=== PATIENT | male | born 1935 | race Caucasian/White ===

== ENCOUNTER 2018-07-25 12:05 | Outpatient (RCR) | payer MEDICARE | END 2018-10-23 | disposition home or self-care (01) | LOC: CARDREHAB | DX: Z48.812 Encounter for surgical aftercare following surgery on the circulatory system (principal); Z95.5 Presence of coronary angioplasty implant and graft ==

== ENCOUNTER 2019-01-14 09:20 | Outpatient (RCR) | payer MEDICARE ==
[~2019-01-14 09:20] MED LIST: AKWA TEARS 15 M15 ML OU; ASPIRIN 81M81 MG/TA2 PO; AZELASTINE137 MCG/Ac NS; CALCIUM 600 +1 EAC5 PO; CELEBREX 200MG200 MG PO; CENTRUM SILVER1 EAC2 PO; CLOPIDOGREL PO; CORDARONE200 MG/TAB PO; COUMADIN 22.5 MG/TAB PO; DESYREL50 MG PO; FISH OIL 1,2001 EACH PO; GLUCOSAMINE & C1 CA2 PO; ICAPS TABLET1 EACH PO; IMPOYZ60 GM TP; ISOSORBIDE MONO60 M2 PO; LASIX40 M1 PO; LIPITOR 40MG TA40 MG PO; NITROSTAT0.3 MG SL; TOPROL XL 50MG50 MG PO; TRIPHALA PO; VITAMIN E400 UNIT PO; XANAX0.5 M1 PO; ZESTRIL20 M1 PO
== END 2019-01-23 | disposition home or self-care (01) ==
LOC: CARDREHAB
DX: Z48.812 Encounter for surgical aftercare following surgery on the circulatory system (principal); Z95.1 Presence of aortocoronary bypass graft

== ENCOUNTER 2019-01-20 19:51 | Emergency (ER) | payer MEDICARE ==
[~2019-01-20] VITALS: Ht 162.6 cm; Wt 131.0 kg
[2019-01-20 21:10] LABS: URINE APPEARANCE HAZY; URINE BILIRUBIN NEGATIVE (NEGATIVE); URINE BLOOD 250 ery/uL (NEGATIVE); URINE COLOR YELLOW; URINE GLUCOSE 50 mg/dL mg/dL (NEGATIVE); URINE KETONE NEGATIVE (NEGATIVE); URINE LEUKOCYTE ESTERASE NEGATIVE (NEGATIVE); URINE NITRATE NEGATIVE (NEGATIVE); URINE PROTEIN(semi-quant) 2+ mg/dL (NEGATIVE); URINE UROBILINOGEN NORMAL (NORMAL)
[2019-01-20 21:10] LABS: ALBUMIN 4.1 g/dL (3.4-4.8); BASO # 0.1 (0.02-0.10); CALCIUM 9.7 mg/dL (8.3-10.5); EOS # 0.5 (0.04-0.40); EOS % 2.9 % (0.0-4.0); HEMOGLOBIN 13.8 g/dL (13.5-18.0); LYMPH# 7.2 (1.50-4.00); MEAN CELL VOLUME 92 fl (78-100); MEAN CORPUSCULAR HEMOGLOBIN 28 pg (27-31); MEAN CORPUSCULAR HGB CONC 31 g/dL (33-37); MEAN PLATELET VOLUME 9.6 fl (7.4-10.4); MONO # 1.8 (0.20-0.80); NEU # 7.1 (1.40-6.50); PLATELET COUNT 277 K/mm3 (130-400); POTASSIUM 4.6 mmol/L (3.5-5.1); RED CELL DISTRIBUTION WIDTH 15.1 % (11.5-14.5); TOTAL BILIRUBIN 0.4 mg/dL (0.2-1.2); TOTAL PROTEIN 7.7 g/dL (6.2-8.1); TROPONIN-I 0.09 ng/mL (<0.030); WHITE BLOOD COUNT 16.7 K/mm3 (4.8-10.8)
[2019-01-20 21:11] LABS: URINE MUCUS PRESENT (NOT PRESENT)
[2019-01-20 21:19] VITALS: BP 170/81
== END 2019-01-20 21:19 | disposition short-term general hospital (02) ==
LOC: ED 21:06
PROVIDERS: Family Medicine
DX: J81.1 Chronic pulmonary edema (principal); I48.91 Unspecified atrial fibrillation; I25.10 Atherosclerotic heart disease of native coronary artery without angina pectoris; I50.9 Heart failure, unspecified; Z95.0 Presence of cardiac pacemaker
CPT/HCPCS: A4618; A7027; J1940; J3010

== ENCOUNTER 2019-05-17 11:00 | Outpatient (RCR) | payer MEDICARE ==
[2019-02-12 06:04] VITALS: BP 125/72
[~2019-05-17 11:00] MED LIST changes: +ALBUTEROL S5 MG/1 ML IH; +ALPRAZOLAM0.25 MG PO; +ATORVASTATIN CA40 MG PO; +ELIQUIS5 MG PO; +FAMOTIDINE20 MG PO; +FISH OIL 1000MG1 CAP PO; +MULTIVITAMIN1 SGL PO; +TRIAMCINOLONE A15 G1 TOP; +[UNRECOGNIZED DRUG - OTHER] PO
== END 2019-05-19 | disposition home or self-care (01) ==
LOC: CARDREHAB
DX: Z48.812 Encounter for surgical aftercare following surgery on the circulatory system (principal); Z95.5 Presence of coronary angioplasty implant and graft; I25.2 Old myocardial infarction; I50.9 Heart failure, unspecified

== ENCOUNTER 2020-04-30 14:59 | Outpatient (RCR) | payer MEDICARE ==
[2019-02-12 06:04] VITALS: BP 125/72
== END 2020-04-30 16:00 | disposition home or self-care (01) ==
LOC: CARDREHAB 14:59 → CARDLAB 15:00 → CARDREHAB 15:00
DX: Z48.812 Encounter for surgical aftercare following surgery on the circulatory system (principal); Z95.5 Presence of coronary angioplasty implant and graft; Z95.2 Presence of prosthetic heart valve; I35.0 Nonrheumatic aortic (valve) stenosis; I11.0 Hypertensive heart disease with heart failure; I50.30 Unspecified diastolic (congestive) heart failure; Z95.0 Presence of cardiac pacemaker

== ENCOUNTER 2020-08-06 10:41 | Emergency (ER) | payer MEDICARE ==
[~2020-08-06] VITALS: Wt 123.9 kg
[~2020-08-06 10:41] MED LIST changes: +DAILY VALUE1 EACH PO; -NITROSTAT0.3 MG SL; +NITROSTAT0.4 M1 SL
[2020-08-06 11:33] LABS: HEMATOCRIT 34.8 % (42.0-52.0); HEMOGLOBIN 10.6 g/dL (13.5-18.0); MEAN CELL VOLUME 78 fl (78-100); MEAN CORPUSCULAR HEMOGLOBIN 24 pg (27-31); MEAN CORPUSCULAR HGB CONC 31 g/dL (33-37); MEAN PLATELET VOLUME 10.5 fl (7.4-10.4); PLATELET COUNT 152 K/mm3 (130-400); RED BLOOD COUNT 4.49 M/mm3 (4.20-5.60); RED CELL DISTRIBUTION WIDTH 20.8 % (11.5-14.5)
[2020-08-06 11:42] LABS: ALBUMIN 3.6 g/dL (3.4-4.8)
[2020-08-06 11:43] LABS: POTASSIUM 3.6 mmol/L (3.5-5.1); SODIUM 138 mmol/L (136-145)
[2020-08-06 11:44] LABS: CALCIUM 9.1 mg/dL (8.3-10.5)
[2020-08-06 11:45] LABS: GLUCOSE 191 mg/dL (75-110); TOTAL PROTEIN 7.4 g/dL (6.2-8.1)
[2020-08-06 11:46] LABS: CARBON DIOXIDE 26 mmol/L (23-31)
[2020-08-06 11:47] LABS: TOTAL BILIRUBIN 0.8 mg/dL (0.2-1.2)
[2020-08-06 11:50] LABS: AST-SGOT 34 U/L (5-34)
[2020-08-06 11:52] LABS: ALT/SGPT 33 U/L (0-55)
[2020-08-06 12:11] LABS: D-DIMER 1.26 mg/L FEU (0.15-0.50); TROPONIN-I < 0.03 ng/mL (<0.030)
[2020-08-06 12:15] LABS: LYMPHOCYTE 9 % (20-51); MICROCYTOSIS 2+; MONOCYTE 15 % (3-10); NEUTROPHILS 76 % (42-75); OVALOCYTES 1+
[2020-08-06 12:56] LABS: ERYTHROCYTE SEDIMENTATION RATE 80 mm/hr (0-20)
[2020-08-06 14:18] LABS: URINE APPEARANCE CLEAR; URINE COLOR YELLOW
[2020-08-06 14:19] LABS: URINE BILIRUBIN NEGATIVE (NEGATIVE); URINE BLOOD TRACE (NEGATIVE); URINE GLUCOSE NEGATIVE (NEGATIVE); URINE KETONE NEGATIVE (NEGATIVE); URINE LEUKOCYTE ESTERASE NEGATIVE (NEGATIVE); URINE NITRATE NEGATIVE (NEGATIVE); URINE PROTEIN(semi-quant) 1+ mg/dL (NEGATIVE); URINE UROBILINOGEN NORMAL (NORMAL)
[2020-08-06 14:20] LABS: URINE MUCUS PRESENT (NOT PRESENT)
[2020-08-06] MEDS ORDERED: VITAMIN C PUR1000 MG PO (15:02)
[2020-08-06] MEDS ORDERED: CEFDINIR300 MG PO (15:02)
[2020-08-06] MEDS ORDERED: PHARMASSURE ZIN50 MG PO (15:02)
[2020-08-06] MEDS ORDERED: VITAMIN D325 MC7 PO (15:06)
[2020-08-06 15:25] VITALS: BP 148/81
== END 2020-08-06 15:42 | disposition home or self-care (01) ==
LOC: ED 10:41
PROVIDERS: Physician Assistant
DX: J01.90 Acute sinusitis, unspecified (principal); I50.9 Heart failure, unspecified; I11.0 Hypertensive heart disease with heart failure; I27.20 Pulmonary hypertension, unspecified; F41.9 Anxiety disorder, unspecified; E78.5 Hyperlipidemia, unspecified; Z20.828 Contact with and (suspected) exposure to other viral communicable diseases; Z95.4 Presence of other heart-valve replacement; Z79.02 Long term (current) use of antithrombotics/antiplatelets; Z79.01 Long term (current) use of anticoagulants
CPT/HCPCS: Q9967

== ENCOUNTER 2020-08-09 14:57 | Emergency (ER) | payer MEDICARE ==
[~2020-08-09] VITALS: Wt 125.4 kg
[~2020-08-09 14:57] MED LIST changes: +CEFDINIR300 MG PO; +PHARMASSURE ZIN50 MG PO; +VITAMIN C PUR1000 MG PO; +VITAMIN D325 MC7 PO
[2020-08-09] MEDS ORDERED: ALPRAZOLAM0.5 MG PO (15:52)
[2020-08-09] MEDS ORDERED: POTASSIUM CHLO20 ME4 PO (15:53)
[2020-08-09] MEDS ORDERED: CALCIUM 600 MG-1 TAB PO (15:58)
[2020-08-09 17:04] LABS: HEMATOCRIT 32.2 % (42.0-52.0); HEMOGLOBIN 9.9 g/dL (13.5-18.0); MEAN CELL VOLUME 78 fl (78-100); MEAN CORPUSCULAR HEMOGLOBIN 24 pg (27-31); MEAN CORPUSCULAR HGB CONC 31 g/dL (33-37); MEAN PLATELET VOLUME 9.9 fl (7.4-10.4); PLATELET COUNT 220 K/mm3 (130-400); RED BLOOD COUNT 4.14 M/mm3 (4.20-5.60); WHITE BLOOD COUNT 14.9 K/mm3 (4.8-10.8)
[2020-08-09 17:18] LABS: POTASSIUM 3.9 mmol/L (3.5-5.1)
[2020-08-09 17:22] LABS: BAND 1 % (0-10); HYPOCHROMIA 1+; LYMPHOCYTE 10 % (20-51); MICROCYTOSIS 1+; MONOCYTE 11 % (3-10); NEUTROPHILS 76 % (42-75); OVALOCYTES 1+; TARGET CELLS 1+
[2020-08-09] MEDS ORDERED: GUAIFEN-CODEINE5 ML PO (18:37)
[2020-08-09] MEDS ORDERED: DECADRON 4MG TAB4 MG PO (18:37)
[2020-08-09 19:12] VITALS: BP 149/90
== END 2020-08-09 19:12 | disposition home or self-care (01) ==
LOC: ED 14:57
PROVIDERS: Family Medicine
DX: J12.9 Viral pneumonia, unspecified (principal); B34.9 Viral infection, unspecified; I25.10 Atherosclerotic heart disease of native coronary artery without angina pectoris; Z95.4 Presence of other heart-valve replacement; Z95.0 Presence of cardiac pacemaker; Z79.01 Long term (current) use of anticoagulants; Z79.02 Long term (current) use of antithrombotics/antiplatelets

== ENCOUNTER 2020-08-09 20:21 | Emergency (ER) | payer MEDICARE ==
[~2020-08-09] VITALS: Ht 170.2 cm; Wt 126.7 kg
[~2020-08-09 20:21] MED LIST changes: +ALPRAZOLAM0.5 MG PO; +CALCIUM 600 MG-1 TAB PO; +DECADRON 4MG TAB4 MG PO; +GUAIFEN-CODEINE5 ML PO; +POTASSIUM CHLO20 ME4 PO
[2020-08-09 20:46] VITALS: BP 126/71
== END 2020-08-09 20:46 | disposition other institution (70) ==
LOC: ED 20:21
DX: J18.9 Pneumonia, unspecified organism (principal); Z79.01 Long term (current) use of anticoagulants; Z79.02 Long term (current) use of antithrombotics/antiplatelets

== ENCOUNTER 2020-08-31 15:51 | Inpatient (IN) | payer MEDICARE ==
[2020-08-31 16:40] VITALS: BP 132/80
[2020-08-31 18:00] VITALS: BP 132/80
[2020-08-31 18:19] LABS: EOS # 0.3 (0.04-0.40); EOS % 2.8 % (0.0-4.0); HEMATOCRIT 33.7 % (42.0-52.0); HEMOGLOBIN 10.1 g/dL (13.5-18.0); LYMPH# 1.5 (1.50-4.00); MEAN CELL VOLUME 80 fl (78-100); MEAN CORPUSCULAR HEMOGLOBIN 24 pg (27-31); MEAN CORPUSCULAR HGB CONC 30 g/dL (33-37); MEAN PLATELET VOLUME 9.2 fl (7.4-10.4); MONO # 1.2 (0.20-0.80); NEU # 8.2 (1.40-6.50); PLATELET COUNT 309 K/mm3 (130-400); RED BLOOD COUNT 4.23 M/mm3 (4.20-5.60); RED CELL DISTRIBUTION WIDTH 20.4 % (11.5-14.5); WHITE BLOOD COUNT 11.2 K/mm3 (4.8-10.8)
[2020-08-31 18:31] LABS: ALBUMIN 3.6 g/dL (3.4-4.8)
[2020-08-31 18:32] LABS: POTASSIUM 3.7 mmol/L (3.5-5.1)
[2020-08-31 18:33] LABS: CALCIUM 9.5 mg/dL (8.3-10.5)
[2020-08-31 18:34] LABS: TOTAL PROTEIN 8.2 g/dL (6.2-8.1)
[2020-08-31 18:36] LABS: TOTAL BILIRUBIN 0.7 mg/dL (0.2-1.2)
[2020-09-01 06:34] VITALS: BP 134/82
[2020-09-01 17:16] VITALS: BP 121/59
[2020-09-02 01:50] VITALS: BP 144/80
[2020-09-02 06:01] VITALS: BP 144/84
[2020-09-02 17:15] VITALS: BP 139/77
[2020-09-03 05:48] VITALS: BP 139/73
[2020-09-03 16:07] VITALS: BP 135/77
[2020-09-04 06:16] VITALS: BP 129/70
[2020-09-04 16:35] LABS: URINE APPEARANCE CLEAR; URINE BILIRUBIN NEGATIVE (NEGATIVE); URINE BLOOD NEGATIVE (NEGATIVE); URINE COLOR YELLOW; URINE GLUCOSE NEGATIVE (NEGATIVE); URINE KETONE NEGATIVE (NEGATIVE); URINE LEUKOCYTE ESTERASE NEGATIVE (NEGATIVE); URINE NITRATE NEGATIVE (NEGATIVE); URINE PROTEIN(semi-quant) TRACE mg/dL (NEGATIVE); URINE UROBILINOGEN NORMAL (NORMAL); URINE WBC 0-1 /hpf (0-3)
[2020-09-04 17:13] VITALS: BP 157/80
[2020-09-05 05:59] VITALS: BP 158/82
[2020-09-05 17:13] VITALS: BP 137/83
[2020-09-06 06:10] VITALS: BP 154/91
[2020-09-06 17:03] VITALS: BP 138/77
[2020-09-07 06:07] VITALS: BP 157/84
[2020-09-07 07:19] LABS: ALBUMIN 3.3 g/dL (3.4-4.8); POTASSIUM 3.7 mmol/L (3.5-5.1)
[2020-09-07 07:20] LABS: CALCIUM 8.9 mg/dL (8.3-10.5)
[2020-09-07 07:21] LABS: EOS # 0.1 (0.04-0.40); EOS % 1.5 % (0.0-4.0); HEMATOCRIT 33.8 % (42.0-52.0); HEMOGLOBIN 10.2 g/dL (13.5-18.0); MEAN CELL VOLUME 80 fl (78-100); MEAN CORPUSCULAR HEMOGLOBIN 24 pg (27-31); MEAN CORPUSCULAR HGB CONC 30 g/dL (33-37); MEAN PLATELET VOLUME 8.7 fl (7.4-10.4); MONO # 0.9 (0.20-0.80); NEU # 5.1 (1.40-6.50); PLATELET COUNT 365 K/mm3 (130-400); RED BLOOD COUNT 4.25 M/mm3 (4.20-5.60); RED CELL DISTRIBUTION WIDTH 19.9 % (11.5-14.5); TOTAL PROTEIN 7.1 g/dL (6.2-8.1); WHITE BLOOD COUNT 8.1 K/mm3 (4.8-10.8)
[2020-09-07 07:23] LABS: TOTAL BILIRUBIN 0.4 mg/dL (0.2-1.2)
[2020-09-07 15:51] VITALS: BP 113/70
[2020-09-08 05:46] VITALS: BP 110/73
[2020-09-08 17:53] VITALS: BP 143/83
[2020-09-09 05:53] VITALS: BP 134/81
[2020-09-09 17:02] VITALS: BP 137/81
[2020-09-10 05:20] VITALS: BP 123/72
[2020-09-10 18:00] VITALS: BP 144/71
[2020-09-11 05:08] VITALS: BP 144/84
[2020-09-11 17:18] VITALS: BP 152/85
[2020-09-12 05:26] VITALS: BP 138/67
[2020-09-12 18:30] VITALS: BP 143/81
[2020-09-13 06:15] VITALS: BP 128/75
[2020-09-13 15:57] VITALS: BP 138/84
[2020-09-14 06:20] VITALS: BP 125/84
[2020-09-14 07:39] LABS: EOS # 0.2 (0.04-0.40); EOS % 2.9 % (0.0-4.0); HEMATOCRIT 38.1 % (42.0-52.0); HEMOGLOBIN 11.3 g/dL (13.5-18.0); LYMPH# 2.1 (1.50-4.00); MEAN CELL VOLUME 80 fl (78-100); MEAN CORPUSCULAR HEMOGLOBIN 24 pg (27-31); MEAN CORPUSCULAR HGB CONC 30 g/dL (33-37); MEAN PLATELET VOLUME 8.9 fl (7.4-10.4); MONO # 0.9 (0.20-0.80); NEU # 4.8 (1.40-6.50); PLATELET COUNT 286 K/mm3 (130-400); RED BLOOD COUNT 4.74 M/mm3 (4.20-5.60)
[2020-09-14 07:42] LABS: ALBUMIN 3.4 g/dL (3.4-4.8); POTASSIUM 4.5 mmol/L (3.5-5.1)
[2020-09-14 07:43] LABS: CALCIUM 8.9 mg/dL (8.3-10.5)
[2020-09-14 07:45] LABS: TOTAL PROTEIN 7.1 g/dL (6.2-8.1)
[2020-09-14 07:47] LABS: TOTAL BILIRUBIN 0.4 mg/dL (0.2-1.2)
[2020-09-14 08:52] LABS: ERYTHROCYTE SEDIMENTATION RATE 43 mm/hr (0-20)
[2020-09-14 16:20] VITALS: BP 138/74
[2020-09-15 05:34] VITALS: BP 149/81
[2020-09-15 17:44] VITALS: BP 121/62
[2020-09-16 05:52] VITALS: BP 111/84
[2020-09-16 17:10] VITALS: BP 133/75
[2020-09-17 05:27] VITALS: BP 138/78
[2020-09-17 17:16] VITALS: BP 168/74
[2020-09-18 06:07] VITALS: BP 143/74
[2020-09-18] MEDS ORDERED: NORCO 325 MG-51 TA1 PO ×8 (07:57→10:41)
[2020-09-18 17:16] VITALS: BP 113/71
[2020-09-19 05:20] VITALS: BP 136/80
[2020-09-19 17:04] VITALS: BP 163/96
[2020-09-20 05:41] VITALS: BP 114/51
[2020-09-20 18:00] VITALS: BP 137/62
[2020-09-21 06:03] VITALS: BP 130/69
[2020-09-21 08:01] LABS: EOS # 0.5 (0.04-0.40); HEMATOCRIT 32.8 % (42.0-52.0); HEMOGLOBIN 9.9 g/dL (13.5-18.0); LYMPH# 1.5 (1.50-4.00); MEAN CELL VOLUME 80 fl (78-100); MEAN CORPUSCULAR HEMOGLOBIN 24 pg (27-31); MEAN CORPUSCULAR HGB CONC 30 g/dL (33-37); MEAN PLATELET VOLUME 8.9 fl (7.4-10.4); MONO # 0.8 (0.20-0.80); NEU # 3.9 (1.40-6.50); PLATELET COUNT 192 K/mm3 (130-400); RED BLOOD COUNT 4.08 M/mm3 (4.20-5.60); RED CELL DISTRIBUTION WIDTH 20.1 % (11.5-14.5); WHITE BLOOD COUNT 6.6 K/mm3 (4.8-10.8)
[2020-09-21 08:02] LABS: ALBUMIN 3.4 g/dL (3.4-4.8); POTASSIUM 3.5 mmol/L (3.5-5.1)
[2020-09-21 08:03] LABS: CALCIUM 8.9 mg/dL (8.3-10.5)
[2020-09-21 08:04] LABS: EOS % 7.1 % (0.0-4.0)
[2020-09-21 08:05] LABS: TOTAL PROTEIN 6.8 g/dL (6.2-8.1)
[2020-09-21 08:06] LABS: TOTAL BILIRUBIN 0.5 mg/dL (0.2-1.2)
[2020-09-21 17:21] VITALS: BP 141/80
[2020-09-22 05:47] VITALS: BP 100/62
[2020-09-22 07:34] LABS: EOS # 0.6 (0.04-0.40); HEMATOCRIT 31.9 % (42.0-52.0); HEMOGLOBIN 9.7 g/dL (13.5-18.0); LYMPH# 1.6 (1.50-4.00); MEAN CELL VOLUME 81 fl (78-100); MEAN CORPUSCULAR HEMOGLOBIN 25 pg (27-31); MEAN CORPUSCULAR HGB CONC 30 g/dL (33-37); MEAN PLATELET VOLUME 9.4 fl (7.4-10.4); MONO # 0.8 (0.20-0.80); NEU # 4.1 (1.40-6.50); PLATELET COUNT 196 K/mm3 (130-400); RED BLOOD COUNT 3.95 M/mm3 (4.20-5.60); RED CELL DISTRIBUTION WIDTH 19.9 % (11.5-14.5)
[2020-09-22 07:44] LABS: ALBUMIN 3.4 g/dL (3.4-4.8); POTASSIUM 3.6 mmol/L (3.5-5.1)
[2020-09-22 07:46] LABS: TOTAL PROTEIN 6.9 g/dL (6.2-8.1)
[2020-09-22 07:48] LABS: TOTAL BILIRUBIN 0.5 mg/dL (0.2-1.2)
[2020-09-22 08:03] LABS: EOS % 7.8 % (0.0-4.0)
[2020-09-22 08:39] LABS: ERYTHROCYTE SEDIMENTATION RATE 69 mm/hr (0-20)
[2020-09-22 12:05] VITALS: BP 143/78
[2020-09-22 12:44] LABS: URINE APPEARANCE CLEAR; URINE BILIRUBIN NEGATIVE (NEGATIVE); URINE BLOOD NEGATIVE (NEGATIVE); URINE COLOR YELLOW; URINE GLUCOSE NEGATIVE (NEGATIVE); URINE KETONE NEGATIVE (NEGATIVE); URINE LEUKOCYTE ESTERASE NEGATIVE (NEGATIVE); URINE MUCUS PRESENT (NOT PRESENT); URINE NITRATE NEGATIVE (NEGATIVE); URINE PROTEIN(semi-quant) TRACE mg/dL (NEGATIVE); URINE UROBILINOGEN NORMAL (NORMAL)
[2020-09-23] MEDS ORDERED: COLACE100 M1 PO (21:44)
[2020-09-23] MEDS ORDERED: DULCOLAX5 M1 PO (21:45)
[2020-09-23] MEDS ORDERED: PROTONIX TR40 M1 PO ×2 (21:46→21:50)
[2020-09-23] MEDS ORDERED: ZINC SO4 PO (21:53)
[2020-09-23] MEDS ORDERED: VITAMIN C500 MG PO (22:04)
[2020-09-23] MEDS ORDERED: cholecalciferol PO (22:06)
== END 2020-09-22 14:25 | disposition short-term general hospital (02) | DRG 307 ==
LOC: MED/SURG 15:51
PROVIDERS: Internal Medicine; Nurse Practitioner; ADMIT Physician Assistant
DX: I38 Endocarditis, valve unspecified (principal); I48.91 Unspecified atrial fibrillation; I50.9 Heart failure, unspecified; I25.10 Atherosclerotic heart disease of native coronary artery without angina pectoris; E11.22 Type 2 diabetes mellitus with diabetic chronic kidney disease; N18.9 Chronic kidney disease, unspecified; I27.20 Pulmonary hypertension, unspecified; G47.33 Obstructive sleep apnea (adult) (pediatric); Z20.822 Contact with and (suspected) exposure to COVID-19; J30.9 Allergic rhinitis, unspecified; E78.5 Hyperlipidemia, unspecified; G47.00 Insomnia, unspecified; E66.9 Obesity, unspecified; Z68.39 Body mass index [BMI] 39.0-39.9, adult; Z79.01 Long term (current) use of anticoagulants; Z95.2 Presence of prosthetic heart valve; Z96.659 Presence of unspecified artificial knee joint; Z79.02 Long term (current) use of antithrombotics/antiplatelets
CPT/HCPCS: J0290; J1580

== ENCOUNTER 2020-09-23 17:25 | Inpatient (IN) | payer MEDICARE ==
[~2020-09-23 17:25] MED LIST changes: +NORCO 325 MG-51 TA1 PO
[2020-09-23 18:29] VITALS: BP 172/92
[2020-09-23] MEDS ORDERED: COLACE100 M1 PO (21:44)
[2020-09-23] MEDS ORDERED: DULCOLAX5 M1 PO (21:45)
[2020-09-23] MEDS ORDERED: PROTONIX TR40 M1 PO ×2 (21:46→21:50)
[2020-09-23] MEDS ORDERED: ZINC SO4 PO (21:53)
[2020-09-23] MEDS ORDERED: VITAMIN C500 MG PO (22:04)
[2020-09-23] MEDS ORDERED: cholecalciferol PO (22:06)
[2020-09-24 05:48] VITALS: BP 142/77
[2020-09-24 17:11] VITALS: BP 139/77
[2020-09-25 05:58] VITALS: BP 131/76
[2020-09-25 17:08] VITALS: BP 124/74
[2020-09-26 05:44] VITALS: BP 150/80
[2020-09-26 17:12] VITALS: BP 142/76
[2020-09-27 06:28] VITALS: BP 123/65
[2020-09-27 17:29] VITALS: BP 118/64
[2020-09-28 05:54] VITALS: BP 121/71
[2020-09-28 07:11] LABS: HEMATOCRIT 32.2 % (42.0-52.0); HEMOGLOBIN 9.4 g/dL (13.5-18.0); MEAN CELL VOLUME 81 fl (78-100); MEAN CORPUSCULAR HEMOGLOBIN 24 pg (27-31); MEAN PLATELET VOLUME 9.3 fl (7.4-10.4); PLATELET COUNT 277 K/mm3 (130-400); WHITE BLOOD COUNT 4.8 K/mm3 (4.8-10.8)
[2020-09-28 07:29] LABS: ALBUMIN 3.3 g/dL (3.4-4.8); LYMPHOCYTE 27 % (20-51); MEAN CORPUSCULAR HGB CONC 29 g/dL (33-37); MICROCYTOSIS 1+; MONOCYTE 9 % (3-10); NEUTROPHILS 53 % (42-75); OVALOCYTES 1+; POTASSIUM 3.5 mmol/L (3.5-5.1)
[2020-09-28 07:32] LABS: TOTAL PROTEIN 6.8 g/dL (6.2-8.1)
[2020-09-28 07:34] LABS: TOTAL BILIRUBIN 0.2 mg/dL (0.2-1.2)
[2020-09-28 17:00] VITALS: BP 124/73
[2020-09-29 06:00] VITALS: BP 146/80
[2020-09-29] MEDS ORDERED: ALPRAZOLAM0.5 MG PO (14:19)
[2020-09-29] MEDS ORDERED: AZELASTINE137 MCG/Ac NS (14:20)
[2020-09-29] MEDS ORDERED: FUROSEMIDE40 MG PO (14:26)
[2020-09-29] MEDS ORDERED: NITROGLYCERIN0.4 M1 SL (14:27)
[2020-09-29 17:46] VITALS: BP 124/69
== END 2020-09-29 18:01 | disposition home or self-care (01) | DRG 307 ==
LOC: MED/SURG 17:25
PROVIDERS: ADMIT Physician Assistant
DX: I38 Endocarditis, valve unspecified (principal); I50.9 Heart failure, unspecified; I48.91 Unspecified atrial fibrillation; I25.10 Atherosclerotic heart disease of native coronary artery without angina pectoris; E11.22 Type 2 diabetes mellitus with diabetic chronic kidney disease; N18.9 Chronic kidney disease, unspecified; J32.9 Chronic sinusitis, unspecified; G47.33 Obstructive sleep apnea (adult) (pediatric); G47.00 Insomnia, unspecified; I27.20 Pulmonary hypertension, unspecified; J30.9 Allergic rhinitis, unspecified; E66.9 Obesity, unspecified; E78.5 Hyperlipidemia, unspecified; R53.81 Other malaise; Z79.01 Long term (current) use of anticoagulants; Z79.02 Long term (current) use of antithrombotics/antiplatelets; Z95.2 Presence of prosthetic heart valve; Z96.659 Presence of unspecified artificial knee joint; Z95.0 Presence of cardiac pacemaker
CPT/HCPCS: J0290; J0696

== ENCOUNTER 2020-10-06 10:30 | Outpatient (RCR) | payer MEDICARE ==
[~2020-10-06 10:30] MED LIST changes: -FLOMAX0.4 MG PO; -XANAX 1MG1 MG PO
[2020-10-08 11:44] VITALS: BP 135/67
[2020-10-23] MEDS ORDERED: XANAX 1MG1 MG PO (10:10)
== END 2021-01-04 | disposition home or self-care (01) ==
LOC: CARDREHAB
DX: Z48.812 Encounter for surgical aftercare following surgery on the circulatory system (principal); Z95.5 Presence of coronary angioplasty implant and graft; I25.119 Atherosclerotic heart disease of native coronary artery with unspecified angina pectoris; I50.30 Unspecified diastolic (congestive) heart failure

== ENCOUNTER → 2020-10-06 | Outpatient (CLI) | payer MEDICARE ==
[2020-09-29 17:46] VITALS: BP 124/69
[~2020-10-06] MED LIST changes: +COLACE100 M1 PO; +DULCOLAX5 M1 PO; +FLOMAX0.4 MG PO; +FUROSEMIDE40 MG PO; +NITROGLYCERIN0.4 M1 SL; +PROTONIX TR40 M1 PO; +VITAMIN C500 MG PO; +XANAX 1MG1 MG PO; +ZINC SO4 PO; +cholecalciferol PO
[2020-10-06 10:52] LABS: BASO # 0.1 (0.02-0.10); EOS # 0.2 (0.04-0.40); EOS % 3.3 % (0.0-4.0); HEMATOCRIT 34.1 % (42.0-52.0); HEMOGLOBIN 10.3 g/dL (13.5-18.0); LYMPH# 1.7 (1.50-4.00); MEAN CELL VOLUME 81 fl (78-100); MEAN CORPUSCULAR HEMOGLOBIN 25 pg (27-31); MEAN CORPUSCULAR HGB CONC 30 g/dL (33-37); MEAN PLATELET VOLUME 8.8 fl (7.4-10.4); MONO # 0.8 (0.20-0.80); NEU # 4.3 (1.40-6.50); PLATELET COUNT 333 K/mm3 (130-400); RED BLOOD COUNT 4.19 M/mm3 (4.20-5.60); RED CELL DISTRIBUTION WIDTH 18.5 % (11.5-14.5)
[2020-10-06 10:56] LABS: ALBUMIN 3.7 g/dL (3.4-4.8); POTASSIUM 3.8 mmol/L (3.5-5.1)
[2020-10-06 10:57] LABS: CALCIUM 9.6 mg/dL (8.3-10.5)
[2020-10-06 10:59] LABS: TOTAL PROTEIN 7.4 g/dL (6.2-8.1)
[2020-10-06 11:00] LABS: TOTAL BILIRUBIN 0.3 mg/dL (0.2-1.2)
[2020-10-06 13:20] LABS: ERYTHROCYTE SEDIMENTATION RATE 59 mm/hr (0-20)
== END ==
LOC: LAB 10:27
PROVIDERS: Internal Medicine
DX: I25.10 Atherosclerotic heart disease of native coronary artery without angina pectoris (principal); K90.9 Intestinal malabsorption, unspecified; B99.9 Unspecified infectious disease; I50.23 Acute on chronic systolic (congestive) heart failure

== ENCOUNTER → 2020-10-19 | Outpatient (CLI) | payer MEDICARE ==
[2020-10-16 10:38] VITALS: BP 145/74
[~2020-10-19] MED LIST changes: +FLOMAX0.4 MG PO; +XANAX 1MG1 MG PO
== END ==
LOC: LAB 12:06
DX: B99.9 Unspecified infectious disease (principal)

== ENCOUNTER 2020-11-10 11:32 | Outpatient (RCR) | payer MEDICARE ==
[2020-10-16 10:38] VITALS: BP 145/74
[2020-10-23 10:06] VITALS: BP 155/95
[2020-10-29 14:59] VITALS: BP 154/84
[2020-11-05 10:28] VITALS: BP 133/72
[~2020-11-10 11:32] MED LIST changes: -FLOMAX0.4 MG PO
[2020-11-10 12:10] VITALS: BP 119/72
== END 2021-01-06 ==
LOC: AMSURD
DX: I38 Endocarditis, valve unspecified (principal)
CPT/HCPCS: 19898

== ENCOUNTER → 2020-12-30 | Outpatient (CLI) | payer MEDICARE ==
[~2020-12-30] MED LIST changes: +FLOMAX0.4 MG PO
== END ==
LOC: RAD 12-29 10:00
DX: M47.24 Other spondylosis with radiculopathy, thoracic region (principal); M43.8X4 Other specified deforming dorsopathies, thoracic region; M51.14 Intervertebral disc disorders with radiculopathy, thoracic region; M48.04 Spinal stenosis, thoracic region; M47.22 Other spondylosis with radiculopathy, cervical region; M48.02 Spinal stenosis, cervical region

== ENCOUNTER → 2021-01-08 | Outpatient (CLI) | payer MEDICARE ==
[2021-01-08 14:39] LABS: BASO # 0.03 (0.02-0.10); EOS % 2.2 % (0.0-4.0); HEMATOCRIT 41.2 % (42.0-52.0); LYMPH# 2.55 (1.50-4.00); MEAN CELL VOLUME 79 fl (78-100); MEAN CORPUSCULAR HEMOGLOBIN 25 pg (27-31); MEAN CORPUSCULAR HGB CONC 32 g/dL (33-37); MEAN PLATELET VOLUME 8.8 fl (7.4-10.4); MONO # 1.13 (0.20-0.80); NEU # 5.17 (1.40-6.50); PLATELET COUNT 194 K/mm3 (130-400); RED BLOOD COUNT 5.19 M/mm3 (4.20-5.60); RED CELL DISTRIBUTION WIDTH 18.7 % (11.5-14.5); WHITE BLOOD COUNT 9.1 K/mm3 (4.8-10.8)
[2021-01-08 15:04] LABS: ALBUMIN 4.2 g/dL (3.4-4.8); POTASSIUM 4.5 mmol/L (3.5-5.1)
[2021-01-08 15:06] LABS: CALCIUM 9.3 mg/dL (8.3-10.5)
[2021-01-08 15:07] LABS: TOTAL PROTEIN 7.7 g/dL (6.2-8.1)
[2021-01-08 15:09] LABS: TOTAL BILIRUBIN 0.5 mg/dL (0.2-1.2)
[2021-01-08 15:14] LABS: MAGNESIUM 2.26 mg/dL (1.60-2.60)
== END ==
LOC: LAB 14:20
PROVIDERS: Internal Medicine
DX: E11.9 Type 2 diabetes mellitus without complications (principal); I50.23 Acute on chronic systolic (congestive) heart failure; K90.9 Intestinal malabsorption, unspecified

== ENCOUNTER 2021-02-09 10:00 | Outpatient (RCR) | payer MEDICARE ==
[~2021-02-09 10:00] MED LIST changes: -FLOMAX0.4 MG PO
== END 2021-05-10 | disposition home or self-care (01) ==
LOC: CARDREHAB
DX: I50.23 Acute on chronic systolic (congestive) heart failure (principal); I25.2 Old myocardial infarction; Z95.0 Presence of cardiac pacemaker

== ENCOUNTER 2021-05-14 11:00 | Outpatient (RCR) | payer MEDICARE ==
[2021-06-25] MEDS ORDERED: FLOMAX0.4 MG PO (13:26)
== END 2021-08-12 | disposition home or self-care (01) ==
LOC: CARDREHAB
DX: I50.23 Acute on chronic systolic (congestive) heart failure (principal); I25.2 Old myocardial infarction; Z95.0 Presence of cardiac pacemaker; Z95.2 Presence of prosthetic heart valve

== ENCOUNTER → 2021-05-20 | Outpatient (CLI) | payer MEDICARE ==
[~2021-05-20] MED LIST changes: +FLOMAX0.4 MG PO
[2021-05-20 14:45] LABS: BASO # 0.04 K/mm3 (0.02-0.10); EOS # 0.21 K/mm3 (0.04-0.40); EOS % 2.4 % (0.0-4.0); HEMATOCRIT 46.7 % (42.0-52.0); HEMOGLOBIN 14.8 g/dL (13.5-18.0); LYMPH# 2.34 K/mm3 (1.50-4.00); MEAN CELL VOLUME 88 fl (78-100); MEAN CORPUSCULAR HEMOGLOBIN 28 pg (27-31); MEAN CORPUSCULAR HGB CONC 32 g/dL (33-37); MEAN PLATELET VOLUME 9.5 fl (7.4-10.4); MONO # 0.86 K/mm3 (0.20-0.80); NEU # 5.36 K/mm3 (1.40-6.50); PLATELET COUNT 175 K/mm3 (130-400); RED BLOOD COUNT 5.34 M/mm3 (4.20-5.60); RED CELL DISTRIBUTION WIDTH 15.6 % (11.5-14.5); WHITE BLOOD COUNT 8.8 K/mm3 (4.8-10.8)
[2021-05-20 14:58] LABS: ALBUMIN 4.2 g/dL (3.4-4.8); POTASSIUM 4.3 mmol/L (3.5-5.1)
[2021-05-20 14:59] LABS: CALCIUM 10.3 mg/dL (8.3-10.5)
[2021-05-20 15:01] LABS: TOTAL PROTEIN 7.3 g/dL (6.2-8.1)
[2021-05-20 15:02] LABS: TOTAL BILIRUBIN 0.7 mg/dL (0.2-1.2)
[2021-05-20 15:07] LABS: MAGNESIUM 2.27 mg/dL (1.60-2.60)
== END ==
LOC: LAB 14:25
PROVIDERS: Internal Medicine
DX: E11.9 Type 2 diabetes mellitus without complications (principal); I50.23 Acute on chronic systolic (congestive) heart failure; M79.641 Pain in right hand

== ENCOUNTER 2021-06-25 11:24 | Emergency (ER) | payer MEDICARE ==
[~2021-06-25 11:24] MED LIST changes: -FLOMAX0.4 MG PO
[2021-06-25 12:01] LABS: BASO # 0.03 K/mm3 (0.02-0.10); EOS # 0.18 K/mm3 (0.04-0.40); EOS % 2.5 % (0.0-4.0); HEMOGLOBIN 14.6 g/dL (13.5-18.0); LYMPH# 2.23 K/mm3 (1.50-4.00); MEAN CELL VOLUME 89 fl (78-100); MEAN CORPUSCULAR HEMOGLOBIN 28 pg (27-31); MEAN CORPUSCULAR HGB CONC 32 g/dL (33-37); MEAN PLATELET VOLUME 9.5 fl (7.4-10.4); MONO # 0.81 K/mm3 (0.20-0.80); NEU # 3.89 K/mm3 (1.40-6.50); PLATELET COUNT 177 K/mm3 (130-400); RED BLOOD COUNT 5.19 M/mm3 (4.20-5.60); RED CELL DISTRIBUTION WIDTH 15.8 % (11.5-14.5); WHITE BLOOD COUNT 7.2 K/mm3 (4.8-10.8)
[2021-06-25 12:12] LABS: URINE APPEARANCE CLEAR; URINE BILIRUBIN NEGATIVE (NEGATIVE); URINE BLOOD TRACE (NEGATIVE); URINE COLOR YELLOW; URINE GLUCOSE NEGATIVE (NEGATIVE); URINE KETONE NEGATIVE (NEGATIVE); URINE LEUKOCYTE ESTERASE NEGATIVE (NEGATIVE); URINE NITRATE NEGATIVE (NEGATIVE); URINE PROTEIN(semi-quant) 1+ mg/dL (NEGATIVE); URINE UROBILINOGEN NORMAL (NORMAL)
[2021-06-25 12:12] LABS: ALBUMIN 4.3 g/dL (3.4-4.8); POTASSIUM 4.3 mmol/L (3.5-5.1)
[2021-06-25 12:13] LABS: URINE MUCUS PRESENT (NOT PRESENT)
[2021-06-25 12:14] LABS: CALCIUM 9.4 mg/dL (8.3-10.5)
[2021-06-25 12:15] LABS: TOTAL PROTEIN 7.2 g/dL (6.2-8.1)
[2021-06-25 12:17] LABS: TOTAL BILIRUBIN 0.7 mg/dL (0.2-1.2)
[2021-06-25] MEDS ORDERED: FLOMAX0.4 MG PO (13:26)
[2021-06-25 13:56] VITALS: BP 179/89
== END 2021-06-25 13:40 | disposition home or self-care (01) ==
LOC: ED 11:24
PROVIDERS: Nurse Practitioner
DX: R33.9 Retention of urine, unspecified (principal); I25.2 Old myocardial infarction; I10 Essential (primary) hypertension; Z79.899 Other long term (current) drug therapy; Z86.711 Personal history of pulmonary embolism; Z79.01 Long term (current) use of anticoagulants

== ENCOUNTER → 2021-08-31 | Outpatient (CLI) | payer MEDICARE ==
[~2021-08-31] MED LIST changes: +FLOMAX0.4 MG PO
[2021-08-31 14:07] LABS: BASO # 0.03 K/mm3 (0.02-0.10); EOS # 0.21 K/mm3 (0.04-0.40); EOS % 2.8 % (0.0-4.0); HEMATOCRIT 46.4 % (42.0-52.0); HEMOGLOBIN 14.8 g/dL (13.5-18.0); LYMPH# 1.74 K/mm3 (1.50-4.00); MEAN CELL VOLUME 88 fl (78-100); MEAN CORPUSCULAR HEMOGLOBIN 28 pg (27-31); MEAN CORPUSCULAR HGB CONC 32 g/dL (33-37); MEAN PLATELET VOLUME 9.5 fl (7.4-10.4); MONO # 0.65 K/mm3 (0.20-0.80); NEU # 4.92 K/mm3 (1.40-6.50); PLATELET COUNT 164 K/mm3 (130-400); RED BLOOD COUNT 5.25 M/mm3 (4.20-5.60); RED CELL DISTRIBUTION WIDTH 15.7 % (11.5-14.5); WHITE BLOOD COUNT 7.6 K/mm3 (4.8-10.8)
[2021-08-31 14:25] LABS: ALBUMIN 4.3 g/dL (3.4-4.8); POTASSIUM 4.1 mmol/L (3.5-5.1)
[2021-08-31 14:26] LABS: CALCIUM 9.7 mg/dL (8.3-10.5)
[2021-08-31 14:27] LABS: TOTAL PROTEIN 7.6 g/dL (6.2-8.1)
[2021-08-31 14:29] LABS: TOTAL BILIRUBIN 0.9 mg/dL (0.2-1.2)
[2021-08-31 14:34] LABS: MAGNESIUM 2.11 mg/dL (1.60-2.60)
[2021-08-31 15:34] LABS: PROTHROMBIN TIME 11.1 SECONDS (9.0-12.0)
== END ==
LOC: LAB 13:32 → RAD 13:32
PROVIDERS: Internal Medicine
DX: Z01.818 Encounter for other preprocedural examination (principal); I51.7 Cardiomegaly; E11.9 Type 2 diabetes mellitus without complications; I48.0 Paroxysmal atrial fibrillation; Z95.0 Presence of cardiac pacemaker

== ENCOUNTER 2021-09-23 08:24 | Emergency (ER) | payer MEDICARE ==
[~2021-09-23 08:24] MED LIST changes: -CIPRO500 M1 PO
[2021-09-23 09:08] LABS: BASO # 0.04 K/mm3 (0.02-0.10); EOS % 4.2 % (0.0-4.0); HEMATOCRIT 42.1 % (42.0-52.0); HEMOGLOBIN 13.5 g/dL (13.5-18.0); LYMPH# 1.87 K/mm3 (1.50-4.00); MEAN CELL VOLUME 88 fl (78-100); MEAN CORPUSCULAR HEMOGLOBIN 28 pg (27-31); MEAN CORPUSCULAR HGB CONC 32 g/dL (33-37); MEAN PLATELET VOLUME 9.8 fl (7.4-10.4); MONO # 0.99 K/mm3 (0.20-0.80); PLATELET COUNT 187 K/mm3 (130-400); RED BLOOD COUNT 4.77 M/mm3 (4.20-5.60); RED CELL DISTRIBUTION WIDTH 15.2 % (11.5-14.5); WHITE BLOOD COUNT 9.5 K/mm3 (4.8-10.8)
[2021-09-23 09:19] LABS: POTASSIUM 4.2 mmol/L (3.5-5.1)
[2021-09-23 09:21] LABS: CALCIUM 9.4 mg/dL (8.3-10.5)
[2021-09-23 09:22] LABS: TOTAL PROTEIN 7.2 g/dL (6.2-8.1)
[2021-09-23 09:24] LABS: TOTAL BILIRUBIN 0.8 mg/dL (0.2-1.2)
[2021-09-23 09:31] LABS: PH-URINE 5.5 (5.0 - 8.0); URINE APPEARANCE CLOUDY; URINE BILIRUBIN NEGATIVE (NEGATIVE); URINE COLOR RED; URINE GLUCOSE NEGATIVE (NEGATIVE); URINE KETONE 1+ (NEGATIVE); URINE PROTEIN(semi-quant) 3+ (NEGATIVE)
[2021-09-23 09:32] LABS: URINE BLOOD 250 ery/uL (NEGATIVE); URINE LEUKOCYTE ESTERASE 2+ (NEGATIVE); URINE NITRATE POSITIVE (NEGATIVE); URINE UROBILINOGEN NORMAL (NORMAL)
[2021-09-23 09:33] LABS: URINE WBC >50 /hpf (0-3)
[2021-09-23] MEDS ORDERED: CIPRO500 M1 PO (10:42)
[2021-09-23 11:04] VITALS: BP 167/90
== END 2021-09-23 10:51 | disposition home or self-care (01) ==
LOC: ED 08:24
PROVIDERS: Nurse Practitioner
DX: N39.0 Urinary tract infection, site not specified (principal); I10 Essential (primary) hypertension; I25.2 Old myocardial infarction; Z86.711 Personal history of pulmonary embolism; Z90.79 Acquired absence of other genital organ(s); Z95.2 Presence of prosthetic heart valve; Z98.52 Vasectomy status; Z79.01 Long term (current) use of anticoagulants; Z79.899 Other long term (current) drug therapy

== ENCOUNTER → 2021-09-23 | Outpatient (CLI) | payer MEDICARE ==
[~2021-09-23] MED LIST changes: +CIPRO500 M1 PO
== END ==
LOC: AMSURD 16:12
DX: T83.091A Other mechanical complication of indwelling urethral catheter, initial encounter (principal); R31.9 Hematuria, unspecified

== ENCOUNTER → 2021-10-07 | Outpatient (CLI) | payer MEDICARE ==
[~2021-10-07] MED LIST changes: +CIPRO500 M1 PO; +MORGIDOX 1X100100 MG PO
[2021-10-07 15:08] LABS: PH-URINE 5.5 (5.0 - 8.0); URINE APPEARANCE CLOUDY; URINE BILIRUBIN 1+ (NEGATIVE); URINE BLOOD 250 ery/uL (NEGATIVE); URINE COLOR BROWN; URINE GLUCOSE 50 mg/dL (NEGATIVE); URINE KETONE 1+ (NEGATIVE); URINE LEUKOCYTE ESTERASE 2+ (NEGATIVE); URINE NITRATE POSITIVE (NEGATIVE); URINE PROTEIN(semi-quant) 3+ (NEGATIVE); URINE UROBILINOGEN 1 mg/dL (NORMAL)
[2021-10-07 15:09] LABS: URINE WBC 31-50 /hpf (0-3)
== END ==
LOC: LAB 14:10
PROVIDERS: Internal Medicine
DX: N02.9 Recurrent and persistent hematuria with unspecified morphologic changes (principal)

== ENCOUNTER → 2021-10-15 | Outpatient (CLI) | payer MEDICARE ==
[~2021-10-15] VITALS: Ht 170.2 cm; Wt 111.3 kg
[2021-10-15 21:22] VITALS: BP 143/78
== END ==
LOC: AMSURD 20:40
DX: R33.9 Retention of urine, unspecified (principal)

== ENCOUNTER 2021-10-16 12:18 | Outpatient (RCR) | payer MEDICARE ==
[~2021-10-16] VITALS: Ht 170.2 cm; Wt 111.3 kg
--- NOTE | 2021-10-16 13:00 | NUR ---
DR RAI NOTIFIED OF GROSS HEMATURIA WITH NUMEROUS BLOOD CLOTS NOTED WITH STRAIGHT CATH. PT STRAIGHT CATHED WITH 16FR COUDE LOWE. NO RESISTENCE MEET, PATIENT TOLERATED WITHOUT DIFFICULTY. DR RAI RECOMMENDS EVALUATION IN ED. PT AGREEABLE TO BE SEEN IN ED.
[2021-10-16 14:01] VITALS: BP 156/80
== END 2021-11-04 | disposition still patient (30) ==
LOC: AMSURD
DX: R33.9 Retention of urine, unspecified (principal)

== ENCOUNTER 2021-10-16 13:27 | Emergency (ER) | payer MEDICARE ==
[~2021-10-16] VITALS: Ht 170.2 cm; Wt 117.9 kg
[2021-10-16 14:33] LABS: BASO # 0.01 K/mm3 (0.02-0.10); EOS # 0.22 K/mm3 (0.04-0.40); EOS % 4.2 % (0.0-4.0); HEMATOCRIT 37.3 % (42.0-52.0); HEMOGLOBIN 12.1 g/dL (13.5-18.0); LYMPH# 1.16 K/mm3 (1.50-4.00); MEAN CELL VOLUME 88 fl (78-100); MEAN CORPUSCULAR HEMOGLOBIN 29 pg (27-31); MEAN CORPUSCULAR HGB CONC 32 g/dL (33-37); MEAN PLATELET VOLUME 9.8 fl (7.4-10.4); NEU # 3.13 K/mm3 (1.40-6.50); PLATELET COUNT 151 K/mm3 (130-400); RED BLOOD COUNT 4.23 M/mm3 (4.20-5.60); WHITE BLOOD COUNT 5.2 K/mm3 (4.8-10.8)
[2021-10-16 14:42] LABS: CALCIUM 8.7 mg/dL (8.3-10.5)
[2021-10-16 15:36] VITALS: BP 123/80
== END 2021-10-16 15:50 | disposition short-term general hospital (02) ==
LOC: ED 13:27
PROVIDERS: Family Medicine
DX: R05.9 Cough, unspecified (principal)
CPT/HCPCS: A4340

== ENCOUNTER → 2022-02-14 | Outpatient (CLI) | payer MEDICARE ==
[2022-02-14 12:01] LABS: BASO # 0.05 K/mm3 (0.02-0.10); EOS # 0.27 K/mm3 (0.04-0.40); EOS % 3.4 % (0.0-4.0); HEMATOCRIT 41.7 % (42.0-52.0); LYMPH# 1.44 K/mm3 (1.50-4.00); MEAN CELL VOLUME 85 fl (78-100); MEAN CORPUSCULAR HEMOGLOBIN 27 pg (27-31); MEAN CORPUSCULAR HGB CONC 31 g/dL (33-37); MEAN PLATELET VOLUME 10.3 fl (7.4-10.4); MONO # 1.04 K/mm3 (0.20-0.80); NEU # 5.13 K/mm3 (1.40-6.50); PLATELET COUNT 179 K/mm3 (130-400); RED BLOOD COUNT 4.91 M/mm3 (4.20-5.60); RED CELL DISTRIBUTION WIDTH 16.9 % (11.5-14.5); WHITE BLOOD COUNT 7.9 K/mm3 (4.8-10.8)
[2022-02-14 13:58] LABS: POTASSIUM 4.4 mmol/L (3.5-5.1)
[2022-02-14 14:00] LABS: CALCIUM 9.4 mg/dL (8.3-10.5)
[2022-02-14 14:11] LABS: MAGNESIUM 2.03 mg/dL (1.60-2.60)
[2022-02-14 15:13] LABS: ERYTHROCYTE SEDIMENTATION RATE 11 mm/hr (0-20)
== END ==
LOC: LAB 09:26
PROVIDERS: Internal Medicine
DX: N40.1 Benign prostatic hyperplasia with lower urinary tract symptoms (principal); K90.9 Intestinal malabsorption, unspecified; E11.9 Type 2 diabetes mellitus without complications; I25.10 Atherosclerotic heart disease of native coronary artery without angina pectoris; I50.23 Acute on chronic systolic (congestive) heart failure; E11.22 Type 2 diabetes mellitus with diabetic chronic kidney disease; N18.31 Chronic kidney disease, stage 3a; E78.2 Mixed hyperlipidemia; G47.33 Obstructive sleep apnea (adult) (pediatric)

== ENCOUNTER → 2022-03-11 | Outpatient (CLI) | payer MEDICARE | LOC: LAB 12:45 | DX: Z12.11 Encounter for screening for malignant neoplasm of colon (principal) ==

== ENCOUNTER → 2022-04-05 | Outpatient (CLI) | payer MEDICARE ==
[2022-04-05 11:17] LABS: BASO # 0.04 K/mm3 (0.02-0.10); EOS # 0.27 K/mm3 (0.04-0.40); EOS % 3.4 % (0.0-4.0); HEMATOCRIT 47.1 % (42.0-52.0); HEMOGLOBIN 14.7 g/dL (13.5-18.0); LYMPH# 1.58 K/mm3 (1.50-4.00); MEAN CELL VOLUME 84 fl (78-100); MEAN CORPUSCULAR HEMOGLOBIN 26 pg (27-31); MEAN CORPUSCULAR HGB CONC 31 g/dL (33-37); MEAN PLATELET VOLUME 9.6 fl (7.4-10.4); MONO # 0.78 K/mm3 (0.20-0.80); NEU # 5.25 K/mm3 (1.40-6.50); PLATELET COUNT 189 K/mm3 (130-400); RED CELL DISTRIBUTION WIDTH 17.8 % (11.5-14.5)
[2022-04-05 11:22] LABS: POTASSIUM 3.7 mmol/L (3.5-5.1)
[2022-04-05 11:24] LABS: CALCIUM 9.8 mg/dL (8.3-10.5)
[2022-04-05 11:30] LABS: MAGNESIUM 1.83 mg/dL (1.60-2.60)
== END ==
LOC: LAB 10:53
PROVIDERS: Internal Medicine
DX: I50.23 Acute on chronic systolic (congestive) heart failure (principal); Z12.11 Encounter for screening for malignant neoplasm of colon; N18.31 Chronic kidney disease, stage 3a; K90.9 Intestinal malabsorption, unspecified; E61.1 Iron deficiency; E78.2 Mixed hyperlipidemia; G47.33 Obstructive sleep apnea (adult) (pediatric); F32.1 Major depressive disorder, single episode, moderate; E11.9 Type 2 diabetes mellitus without complications; L30.9 Dermatitis, unspecified

== ENCOUNTER 2022-06-07 11:00 | Outpatient (RCR) | payer MEDICARE | END 2022-07-06 | disposition home or self-care (01) | LOC: CARDREHAB | DX: I50.23 Acute on chronic systolic (congestive) heart failure (principal) ==